=== PATIENT | female | born 1965 | race Caucasian/White ===

== ENCOUNTER → 2019-10-06 10:40 | Outpatient (CLI) | payer OTHER, SELFPAY ==
[2019-10-06 11:35] LABS: Add Manual Diff / Slide Review NO; Basophils Absolute Auto 100 /uL (0-100); Basophils Percent Auto 1.4 % (0-2); Eosinophils Absolute Auto 100 /uL (0-450); Eosinophils Percent Auto 3.1 % (2-4); Hematocrit 40.7 % (36-46); Hemoglobin 13.9 g/dL (12.0-16.0); Lymphocytes Absolute Auto 1100 /uL (1100-4500); Lymphocytes Percent Auto 26.7 % (25-40); Mean Corpuscular HGB Conc 34.2 % (30-36); Mean Corpuscular Hemoglobin 29.3 PG (26-34); Mean Corpuscular Volume 85.7 fL (80-100); Monocytes Absolute Auto 300 /uL (0-900); Monocytes Percent Auto 8.3 % (3-14); Neutrophils Absolute Auto 2400 /uL (1500-7000); Neutrophils Percent Auto 60.5 % (50-75); Platelet Count 215 X10^3/uL (150-400); Red Blood Cell Count 4.75 X10^6/uL (4.0-5.2); Red Cell Distribution Width 12.8 % (11.6-14.8)
[2019-10-06 12:17] LABS: Cholesterol 201 mg/dL (140-199); Glucose 95 mg/dL (70-100); HDL Cholesterol 65 mg/dL (40-60); LDL Cholesterol Calculated 122 mg/dL (<100); Triglycerides 72 mg/dL (35-150)
== END ==
PROVIDERS: PCP Family Medicine; Referring Provider Family Medicine; Visit Provider Family Medicine
DX: Z13.1 Encounter for screening for diabetes mellitus (principal); Z13.220 Encounter for screening for lipoid disorders; D64.9 Anemia, unspecified
CPT/HCPCS: 36415; 80061; 82947; 85025

== ENCOUNTER → 2019-10-27 14:16 | Outpatient (CLI) | payer OTHER, SELFPAY ==
--- NOTE | 2019-10-27 14:17 | DI.MG.S_ITS ---
BILATERAL DIGITAL SCREENING MAMMOGRAM 3D/2D WITH CAD: 10/27/2019 CLINICAL: Baseline exam Routine screening. Family history of breast cancer. No prior exams were available for comparison. There are scattered fibroglandular elements in both breasts. Current study was also evaluated with a Computer Aided Detection (CAD) system. There is a possible asymmetry with an indistinct margin in the left breast middle depth central to the nipple seen on the mediolateral oblique view only. No other significant masses, calcifications, or other findings are seen in either breast. IMPRESSION: INCOMPLETE: NEEDS ADDITIONAL IMAGING EVALUATION The possible asymmetry in the left breast is indeterminate. Additional views with possible ultrasound are recommended. This exam was interpreted at Station ID: [id number]. NOTE: For mammograms, a report in lay terms will be sent to the patient. Approximately 15% of breast malignancies will not be visualized mammographically. In the management of a palpable breast mass, a negative mammogram must not discourage biopsy of a clinically suspicious lesion. Electronically Signed By: Marina rodriguez/nik:10/27/2019 17:45:15 letter sent: Additional Imaging Needed ACR BI-RADS Category 0: Incomplete 3340F
== END ==
PROVIDERS: PCP Family Medicine; Referring Provider Family Medicine; Visit Provider Family Medicine
DX: Z12.31 Encounter for screening mammogram for malignant neoplasm of breast (principal); Z80.3 Family history of malignant neoplasm of breast
CPT/HCPCS: 77063; 77067

== ENCOUNTER → 2019-11-17 08:39 | Outpatient (CLI) | payer OTHER, SELFPAY ==
--- NOTE | 2019-11-17 08:39 | DI.MG.S_ITS ---
UNILATERAL LEFT DIGITAL DIAGNOSTIC MAMMOGRAM 3D/2D WITH ADDITIONAL VIEWS: 11/17/2019 CLINICAL: Additional evaluation requested from prior study. Comparison is made to exam dated: 10/27/2019 mammogram - [facility]. There are scattered fibroglandular elements in left breast. The previously seen asymmetry in the left breast is no longer visualized and presumably represents superimposed fibroglandular breast tissue. No significant masses, calcifications, or other findings are seen in the breast. IMPRESSION: NEGATIVE There is no mammographic evidence of malignancy. A 1 year screening mammogram is recommended. This exam was interpreted at Station ID: [id number]. NOTE: For mammograms, a report in lay terms will be sent to the patient. Approximately 15% of breast malignancies will not be visualized mammographically. In the management of a palpable breast mass, a negative mammogram must not discourage biopsy of a clinically suspicious lesion. Electronically Signed By: Beltran beck/nik:11/17/2019 09:08:31 letter sent: Normal Exam ACR BI-RADS Category 1: Negative 3341F
== END ==
PROVIDERS: PCP Family Medicine; Referring Provider Family Medicine; Visit Provider Family Medicine
DX: R92.8 Other abnormal and inconclusive findings on diagnostic imaging of breast (principal)
CPT/HCPCS: 77065; G0279

== ENCOUNTER → 2021-12-01 08:10 | Outpatient (CLI) | payer OTHER, SELFPAY ==
[2021-12-01 09:02] LABS: Cholesterol 198 mg/dL (140-199); Glucose 88 mg/dL (70-100); HDL Cholesterol 58 mg/dL (40-60); LDL Cholesterol Calculated 124 mg/dL (<100); Triglycerides 79 mg/dL (35-150)
== END ==
PROVIDERS: PCP Family Medicine; Referring Provider Family Medicine; Visit Provider Family Medicine
DX: Z13.9 Encounter for screening, unspecified (principal)
CPT/HCPCS: 36415; 80061; 82947

== ENCOUNTER → 2022-02-25 09:44 | Outpatient (CLI) | payer OTHER, SELFPAY ==
[2022-02-25 11:22] LABS: COVID19 -Nasal RAPID Negative (Negative)
== END ==
PROVIDERS: PCP Family Medicine; Visit Provider Surgery
DX: Z20.822 Contact with and (suspected) exposure to COVID-19 (principal); Z01.812 Encounter for preprocedural laboratory examination
CPT/HCPCS: 87635; C9803

== ENCOUNTER 2022-02-26 14:00 | Day surgery (SDC) | payer OTHER, SELFPAY ==
[2022-02-22 08:31] VITALS: BMI 21.7
--- NOTE | 2022-02-26 | PATH_ITS ---
[facility] Accession Number: [id number] . 01 Material submitted: . arm - RIGHT ARM . 01 Clinical history: . LIPOMA . 01 Diagnosis: Right Arm, Excisions: Fragments of mature adipose tissue, consistent with lipoma. [facility] 03/01/2022 1105 Local . 01 Electronically signed: . Kwame Loco MD, Dermatopathologist NPI- [id number] . 01 Gross description: . The specimen is received in formalin labeled with the patient's name, , and right arm lipoma, and consists of two yellow lobulated soft tissue fragments. The first measures 3.5 x 3.0 x 1.1 cm and the external surface is inked blue. The second fragment measures 1.4 x 1.2 x 0.7 cm and the external surface is inked green. Sectioning reveals a yellow homogeneous unremarkable cut surface. [employer] sections are submitted in cassettes A1-A2. ([id number]) /MRV 02/27/2022 1511 Local . 01 Pathologist provided ICD-10: D17.9 . 01 CPT . 522537 Specimen Comment: A courtesy copy of this report has been sent to [phone] Performed at: 01 [facility] [address] [place] [address] [address] [facility], [place], [place] [id number] MD Les Tran MD Phone: [phone]
[2022-02-26] MEDS: LACTATED RINGERS 1,000 ML 42 ML IV (14:10)
[2022-02-26 14:20] VITALS: BP 104/66; PULSE 74; RESP 16; TEMP 36.7; O2SAT 98; BMI 21.3
--- NOTE | 2022-02-26 15:50 | PM.HP.1 ---
History of Present Illness History of Present Illness Date Patient Seen: 02/26/22 Time Patient Seen: 15:50 Chief complaint: Excisional Biopsy of Rt Arm Mass Narrative: Devin is here her right arm mass removal. She has had no changes to her health. She prefers to be unaware when we are performing the procedure. Patient History Surgical History (Updated 02/22/22 @ 08:36 by Kristin Ly RN) History of surgery Hx of knee surgery Hx of tonsillectomy Family & Social History Social History: household members spouse Tobacco & Substance use: Smoking Status Never smoker alcohol intake never Substance Use Type does not use Meds Home Medications and Allergies Allergies Allergy/AdvReac Type Severity Reaction Status Date / Time doxycycline Allergy Intermediate nausea and Verified 02/26/22 14:14 vomiting Exam Vital Signs (past 8 hours): - 02/26/22 14:20 Temperature 98.1 F Pulse Rate 74 Respiratory Rate 16 Blood Pressure 104/66 Pulse Oximetry 98 Oxygen Delivery Method Room Air Oxygen Delivery Method Room Air Narrative Exam Narrative: Proximal right arm soft tissue mass just distal to the right axilla consistent with a lipoma Assessment & Plan Assessment and plan (1) Mass of right upper extremity: Status: Acute Plan We will perform an excisional biopsy of this right arm mass with some moderate sedation. Time Spent With Patient Critical Care time: I spent a total of [] minutes of critical care time on this patient's care today; this time is exclusive of procedural time.
--- NOTE | 2022-02-26 15:55 | SUR.OPER ---
Supine on padded OR bed, head on pillow, non operative arm secured on padded arm board at <90 degrees abduction, operative arm on hand table, legs uncrossed, safety belt at thigh.
[2022-02-26] MEDS: LIDOCAINE 1% 20 ML INJ (16:26)
[2022-02-26] MEDS: BUPIVACAINE 0.25% (PF) VIAL 30 ML INJ (16:26)
[2022-02-26] MEDS: EPINEPHrine 1 MG/ML 0.15 MG IM (16:28)
--- NOTE | 2022-02-26 16:43 | P.OP_ITS ---
Operative Date/Time/Diagnoses Date of procedure: 02/26/22 Time of procedure: 16:43 Pre-op diagnosis: Right arm soft tissue mass Post-op diagnosis: same Procedure & Clinicians Procedure: Excisional biopsy of right arm soft tissue mass Same procedure as scheduled: Yes Surgeon: Andrew David Anesthesia Type: MAC +/- Operative Notes Procedure in detail: The patient was brought to the operating room and placed on the table in the supine position. The right arm was placed armboard. Mac was induced by Dr. Correa. The right arm was prepped and draped in the usual fashion and a time- out was performed. We made an axially oriented incision over the mass of about 5 cm. Mass appeared to be a lipoma and was easily extruded. A few bleeders were cauterized. The deepest aspect of the mass did not quite reach the muscle fascia. Once the mass was removed we closed the incision in layers using multiple interrupted 3-0 Vicryl dermal sutures followed by a running 4 Monocryl subcuticular closure. Dressings were applied and the patient was awakened and brought to recovery room. EBL: 10 mL Post-operative Condition: stable Disposition: PACU
[2022-02-26 16:46] VITALS: BP 104/66; PULSE 67; RESP 17; TEMP 36.4; O2SAT 100
[2022-02-26 16:49] VITALS: BP 109/69; PULSE 66; RESP 16; O2SAT 100
[2022-02-26 16:52] VITALS: BP 111/69; PULSE 64; RESP 11; O2SAT 100
[2022-02-26 16:55] VITALS: BP 113/70; PULSE 66; RESP 11; O2SAT 100
== END 2022-02-26 17:11 | disposition home or self-care (01) ==
PROVIDERS: PCP Family Medicine; Referring Provider Surgery; Visit Provider Surgery
PROC: (CPT 24071; principal; 2022-02-26 15:15)
DX: D17.21 Benign lipomatous neoplasm of skin and subcutaneous tissue of right arm (principal)
CPT/HCPCS: 24071; J0171; J2250; J2704; J3010

== ENCOUNTER 2022-05-16 07:22 | Day surgery (SDC) | payer OTHER, SELFPAY ==
[2022-05-16 07:58] VITALS: BP 102/71; PULSE 86; RESP 20; TEMP 36.7; O2SAT 99; BMI 20.9
[2022-05-16] MEDS: LACTATED RINGERS 1,000 ML 150 ML IV (08:05)
--- NOTE | 2022-05-16 08:14 | PM.HP.1 ---
History of Present Illness History of Present Illness Date Patient Seen: 05/16/22 Time Patient Seen: 08:14 Chief complaint: Colonoscopy Narrative: Devin is here for her colonoscopy. She has not had 1 before. She has no known family history of colon cancer. Patient History Surgical History History of surgery Hx of knee surgery Hx of tonsillectomy Family & Social History Social History: household members spouse Tobacco & Substance use: Smoking Status Never smoker alcohol intake never Substance Use Type does not use Meds Home Medications and Allergies Home Medications Medication Instructions Recorded Confirmed Type No Known Home Medications 05/16/22 05/16/22 History Allergies Allergy/AdvReac Type Severity Reaction Status Date / Time doxycycline Allergy Intermediate nausea and Verified 05/16/22 07:57 vomiting Exam Vital Signs (past 8 hours): - 05/16/22 07:58 Temperature 98.1 F Pulse Rate 86 Respiratory Rate 20 Blood Pressure 102/71 Pulse Oximetry 99 Oxygen Delivery Method Room Air Oxygen Delivery Method Room Air Narrative Exam Narrative: Well-healed right arm scar Normal respiratory effort Assessment & Plan Assessment and plan (1) Colon cancer screening: Status: Acute Plan We reviewed the risks and benefits of colonoscopy for colon cancer screening and she would like to proceed Time Spent With Patient Critical Care time: I spent a total of [] minutes of critical care time on this patient's care today; this time is exclusive of procedural time.
[2022-05-16 08:39] VITALS: BP 82/47; PULSE 58; RESP 8; TEMP 36.5; O2SAT 97
--- NOTE | 2022-05-16 08:40 | PM.OP.COLON ---
Operative Date/Time/Diagnoses Date of procedure: 05/16/22 Time of procedure: 08:40 Pre-op diagnosis: Colon cancer screening Post-op diagnosis: same Procedure & Clinicians Study performed: Colonoscopy Same procedure as scheduled: Yes Surgeon: Andrew David Procedure Notes Procedure in detail: Surgeon: Andrew David MD Anesthesia: Dr. Watts Procedure: The patient was brought to the endoscopy suite, placed in left lateral decubitus position. The patient was connected to monitoring devices. A time-out was performed. Sedation was administered. Once the patient was adequately sedated, a digital rectal exam was performed and was normal. The scope was then inserted and advanced to the cecum where the appendiceal orifice was identified and photographed. The scope was then slowly withdrawn over greater than 6 minutes. The mucosa was thoroughly inspected. No abnormalities were noted. The scope was retroflexed in the rectum. No other abnormalities were seen. The scope was straightened and removed. The patient was awakened and brought to recovery. Scope withdrawal time: 8 minutes Sedation time: 12 minutes EBL: 0 Findings: Normal colon Post-procedure Recommendations: Colonoscopy in 10 years Disposition: PACU
[2022-05-16 08:44] VITALS: BP 82/53; PULSE 63; RESP 12; O2SAT 100
[2022-05-16 08:49] VITALS: BP 101/67; PULSE 67; RESP 14; O2SAT 99
[2022-05-16 08:54] VITALS: BP 110/73; PULSE 65; RESP 16; O2SAT 100
[2022-05-16 08:57] VITALS: BP 117/62; PULSE 67; RESP 16; O2SAT 99
== END 2022-05-16 09:12 | disposition home or self-care (01) ==
PROVIDERS: PCP Family Medicine; Referring Provider Surgery; Visit Provider Surgery
PROC: 0DJD8ZZ Inspection of Lower Intestinal Tract, Via Natural or Artificial Opening Endoscopic (ICD-10-PCS; CPT 45378; principal; 2022-05-16 08:15)
DX: Z12.11 Encounter for screening for malignant neoplasm of colon (principal)
CPT/HCPCS: 45378; J2704; J3010

== ENCOUNTER → 2022-11-05 14:36 | Outpatient (CLI) | payer OTHER, SELFPAY ==
--- NOTE | 2022-11-05 14:38 | DI.MG.S_ITS ---
BILATERAL DIGITAL SCREENING MAMMOGRAM 3D/2D WITH CAD: 11/05/2022 CLINICAL: Routine screening. Comparison is made to exams dated: 10/27/2019 mammogram and 11/17/2019 mammogram - [facility]. There are scattered areas of fibroglandular density in both breasts (category b / 25%-50% glandular tissue). Current study was also evaluated with a Computer Aided Detection (CAD) system. No significant masses, calcifications, or other findings are seen in either breast. There has been no significant interval change. IMPRESSION: NEGATIVE There is no mammographic evidence of malignancy. A 1 year screening mammogram is recommended. Based on the Tyrer Cuzick model (a risk assessment model) the patient's lifetime risk is 9.9% and her 10 year risk is 3.4%. According to the ACR, ACS, and NCCN guidelines, an annual breast MRI exam along with mammogram is recommended if the patient's lifetime risk is 20% or greater. This exam was interpreted at Station ID: [id number]. NOTE: For mammograms, a report in lay terms will be sent to the patient. Approximately 15% of breast malignancies will not be visualized mammographically. In the management of a palpable breast mass, a negative mammogram must not discourage biopsy of a clinically suspicious lesion. Electronically Signed By: [place] arceo/nik:11/05/2022 16:08:53 letter sent: Normal Exam ACR BI-RADS Category 1: Negative 3341F
== END ==
PROVIDERS: PCP Family Medicine; Referring Provider Family Medicine; Visit Provider Family Medicine
DX: Z12.31 Encounter for screening mammogram for malignant neoplasm of breast (principal)
CPT/HCPCS: 77063; 77067

== ENCOUNTER → 2024-01-09 07:07 | Outpatient (CLI) | payer OTHER, SELFPAY ==
[2024-01-09 08:06] LABS: Add Manual Diff / Slide Review NO; Basophils Absolute Auto 100 /uL (0-100); Basophils Percent Auto 1.2 % (0-2); Eosinophils Absolute Auto 100 /uL (0-450); Eosinophils Percent Auto 2.8 % (2-4); Hematocrit 41.9 % (36-46); Hemoglobin 14.3 g/dL (12.0-16.0); Lymphocytes Absolute Auto 1300 /uL (1100-4500); Lymphocytes Percent Auto 28.5 % (25-40); Mean Corpuscular HGB Conc 34.1 % (30-36); Mean Corpuscular Hemoglobin 29.6 PG (26-34); Mean Corpuscular Volume 86.9 fL (80-100); Monocytes Absolute Auto 400 /uL (0-900); Monocytes Percent Auto 7.9 % (3-14); Neutrophils Absolute Auto 2700 /uL (1500-7000); Neutrophils Percent Auto 59.6 % (50-75); Platelet Count 227 X10^3/uL (150-400); Red Blood Cell Count 4.83 X10^6/uL (4.0-5.2); Red Cell Distribution Width 13.2 % (11.6-14.8); White Blood Cell Count 4.6 X10^3/uL (4.5-11.0)
[2024-01-09 08:10] LABS: Hemoglobin A1C% w Est Avg Glu 5.2 % (4.0-6.0)
[2024-01-09 08:21] LABS: Alanine Aminotransferase 19 IU/L (<35); Albumin 4.2 g/dL (3.5-5.0); Albumin Globulin Ratio 1.9 (1.0-2.8); Alkaline Phosphatase 44 U/L (38-126); Aspartate Aminotransferase 25 IU/L (14-36); Bilirubin Total 0.7 mg/dL (0.2-1.3); Blood Urea Nitrogen 15 mg/dL (7-17); Calcium 9.7 mg/dL (8.4-10.2); Carbon Dioxide 27 mmol/L (22-32); Chloride 106 mmol/L (98-107); Cholesterol 218 mg/dL (140-199); Estimated Glomerular Filt Rate > 60 mL/min (>60); Globulin 2.2 g/dL (1.7-4.1); Glucose 94 mg/dL (70-100); HDL Cholesterol 63 mg/dL (40-60); HEMOLYSIS < 15 (0-50); LDL Cholesterol Calculated 139 mg/dL (<100); Potassium 4.7 mmol/L (3.4-5.1); Sodium 138 mmol/L (137-145); Total Protein 6.4 g/dL (6.3-8.2); Triglycerides 79 mg/dL (35-150)
== END ==
PROVIDERS: PCP Family Medicine; Referring Provider Family Medicine; Visit Provider Family Medicine
DX: Z01.818 Encounter for other preprocedural examination (principal); E78.5 Hyperlipidemia, unspecified; Z13.1 Encounter for screening for diabetes mellitus; R39.89 Other symptoms and signs involving the genitourinary system
CPT/HCPCS: 36415; 80053; 80061; 83036; 85025

== ENCOUNTER → 2024-01-12 15:45 | Outpatient (CLI) | payer OTHER, SELFPAY ==
--- NOTE | 2024-01-12 15:46 | DI.MG.S_ITS ---
BILATERAL DIGITAL SCREENING MAMMOGRAM 3D/2D WITH CAD: 01/12/2024 CLINICAL: Routine screening. Family history of breast cancer. Comparison is made to exams dated: 11/05/2022 mammogram and 10/27/2019 mammogram - [facility]. There are scattered areas of fibroglandular density (category b / 25%-50% glandular tissue). Current study was also evaluated with a Computer Aided Detection (CAD) system. No significant masses, calcifications, or other findings are seen in either breast. There has been no significant interval change. IMPRESSION: NEGATIVE There is no mammographic evidence of malignancy. A 1 year screening mammogram is recommended. Based on the Tyrer Cuzick model (a risk assessment model) the patient's lifetime risk is 9.6% and her 10 year risk is 3.7%. According to the ACR, ACS, and NCCN guidelines, an annual breast MRI exam along with mammogram is recommended if the patient's lifetime risk is 20% or greater. This exam was interpreted at Station ID: [id number]. NOTE: For mammograms, a report in lay terms will be sent to the patient. Approximately 15% of breast malignancies will not be visualized mammographically. In the management of a palpable breast mass, a negative mammogram must not discourage biopsy of a clinically suspicious lesion. Electronically Signed By: Marina rodriguez/nik:01/14/2024 11:01:56 letter sent: Normal Exam ACR BI-RADS Category 1: Negative
== END ==
PROVIDERS: PCP Family Medicine; Referring Provider Family Medicine; Visit Provider Family Medicine
DX: Z12.31 Encounter for screening mammogram for malignant neoplasm of breast (principal); Z80.3 Family history of malignant neoplasm of breast
CPT/HCPCS: 77063; 77067

== ENCOUNTER → 2024-04-19 07:07 | Outpatient (CLI) | payer OTHER, SELFPAY ==
[2024-04-19 07:39] LABS: Specimen Label KIT TESTS
== END ==
LOC: LAB 07:12
PROVIDERS: PCP Family Medicine; Referring Provider Internal Medicine; Visit Provider Internal Medicine
DX: Z00.8 Encounter for other general examination (principal); Z52.4 Kidney donor
CPT/HCPCS: 36415

== ENCOUNTER → 2024-04-20 07:52 | Outpatient (CLI) | payer OTHER, SELFPAY ==
[2024-04-20 08:55] LABS: Cholesterol 228 mg/dL (140-199); Estimated Glomerular Filt Rate > 60 mL/min (>60); Glucose 98 mg/dL (70-100)
[2024-04-20 09:33] LABS: Creatinine Urine Random 97.43 mg/dL; Patient Height Urine 66 inches; Patient Weight Urine 130 lbs
[2024-04-20 09:48] LABS: Collection Time Urine 24 Hours; Creatinine 24 Hour Urine 1364 mg/day (800-1800); Microalbumin 24 Hour Urine 8.4 mg/day (<30); Microalbumin Excretion Rate Ur 5.8 ug/min (<20); Microalbumin Urine Random < 0.6 mg/dL (0-1.6); Protein (Total) Urine Random < 5 mg/dL (0-12); Total Protein 24 Hour Urine 70 mg/day (42-225); Total Volume Urine 1400 mL
[2024-04-20 20:45] LABS: Creat Clearance, Corrected 101.8 mL/MIN; Creatinine Clearance Urine 97.7 mL/MIN; Creatinine, Serum (CRCL) 0.97 mg/dL (0.52-1.04)
== END ==
PROVIDERS: PCP Family Medicine; Referring Provider Internal Medicine; Visit Provider Internal Medicine
DX: Z52.4 Kidney donor (principal); Z00.8 Encounter for other general examination
CPT/HCPCS: 36415; 82043; 82465; 82565; 82570; 82575; 82947; 84156

== ENCOUNTER → 2024-04-30 07:25 | Outpatient (CLI) | payer OTHER, SELFPAY ==
[2024-04-30 08:54] LABS: Cholesterol 218 mg/dL (140-199); HDL Cholesterol 67 mg/dL (40-60); LDL Cholesterol Calculated 136 mg/dL (<100); Triglycerides 75 mg/dL (35-150)
[2024-04-30 09:02] LABS: Creatinine Urine Random 59.41 mg/dL; Patient Height Urine 66 inches; Patient Weight Urine 132 lbs; Protein (Total) Urine Random 6 mg/dL (0-12)
[2024-04-30 09:07] LABS: Collection Time Urine 24 Hours; Creat Clearance, Corrected 114.8 mL/MIN; Creatinine Clearance Urine 110.9 mL/MIN; Microalbumin 24 Hour Urine 12.9 mg/day (<30); Microalbumin Urine Random < 0.6 mg/dL (0-1.6); Total Protein 24 Hour Urine 129 mg/day (42-225); Total Volume Urine 2150 mL
== END ==
LOC: LAB 07:28
PROVIDERS: PCP Family Medicine; Referring Provider Internal Medicine; Visit Provider Internal Medicine
DX: Z00.8 Encounter for other general examination (principal); Z52.4 Kidney donor
CPT/HCPCS: 80061; 82043; 82575; 84156

== ENCOUNTER → 2024-09-01 09:13 | Outpatient (CLI) | payer OTHER, SELFPAY ==
[2024-09-01 19:45] LABS: HIV 1 & 2 Ab/Ag 4th Gen Combo NEGATIVE (NEGATIVE); Hep C Virus Ab w/Reflex Quant NEGATIVE s/c (NEGATIVE); Hepatitis B Surface Antigen NEGATIVE s/c (NEGATIVE)
[2024-09-02 00:12] LABS: Hepatitis B Core Antibody Negative (Negative)
== END ==
PROVIDERS: PCP Family Medicine; Referring Provider Internal Medicine; Visit Provider Internal Medicine
DX: Z00.8 Encounter for other general examination (principal); Z52.4 Kidney donor
CPT/HCPCS: 36415; 86704; 86803; 87340; 87389; 87522

== ENCOUNTER → 2025-03-22 09:32 | Outpatient (CLI) | payer OTHER, SELFPAY ==
[2025-03-22 11:02] LABS: Estradiol, Total 16.2 pg/mL; TSH w/ Reflex to FT4 3.07 uIU/mL (0.47-4.68)
== END ==
PROVIDERS: PCP Family Medicine; Referring Provider Family Medicine; Visit Provider Family Medicine
DX: R68.82 Decreased libido (principal); N95.9 Unspecified menopausal and perimenopausal disorder
CPT/HCPCS: 36415; 82670; 84402; 84403; 84443